=== PATIENT | male | born 1970 | race Caucasian/White ===

== ENCOUNTER → 2018-07-03 | Outpatient (CLI) | payer BC ==
--- NOTE | 2018-07-03 16:30 | RADIOLOGY IMAGING REPORT ---
[place] [facility] [place]: Ricardo Carey : 1970 MR: [id number] V: [id number] EXAM DATE: ORDERING PHYSICIAN: EMERITA HARO TECHNOLOGIST: Location: [facility] Patient: Ricardo Carey : 1970 Visit/Account:[id number] Date of Sevice: 07/03/2018 INDICATION: . Evaluate fracture at the base of the fifth metatarsal. DATE: 07/03/2018 4:22 PM. TECHNIQUE: FOOT RIGHT W/O CONTRAST. Noncontrast axial CT imaging was performed through the right ankl e with sagittal and coronal reformats. One of the following dose optimization techniques was utilized in the performance of this exam: Automated exposure control; adjustment of the mA and/or kV accordin g to the patient's size; or use of an iterative reconstruction technique. Specific details can be r eferenced in the facility's radiology CT exam operational policy. COMPARISON: None available. FINDINGS: A fracture at the base of the fifth metatarsal is extensively comminuted and extends to the intermetatarsal articulation. The cuboid is intact as are the cuneiforms. The first through fourth m etatarsals are intact. No fracture at the ankle. Minimal degenerative findings at the midfoot. Soft t issues are edematous adjacent to the fracture along the lateral side of foot. IMPRESSION: Comminuted fracture of the fifth metatarsal base. No other fracture identified. Report Dictated By: Mi Zapata MD at 07/03/2018 4:22 PM Report E-Signed By: Mi Zapata MD at 07/03/2018 4:26 PM WSN:[id number]
== END ==
LOC: CT 15:27
PROVIDERS: ATTEND Orthopaedic Surgery Hand Surgery
DX: S92.355A Nondisplaced fracture of fifth metatarsal bone, left foot, initial encounter for closed fracture (principal)

== ENCOUNTER → 2018-09-15 | Outpatient (CLI) | payer BC ==
--- NOTE | 2018-09-15 16:09 | RADIOLOGY IMAGING REPORT ---
FAC[facility] PATIENT NAME: Ricardo Carey : 1970 MR: [id number] V: [id number] EXAM DATE: ORDERING PHYSICIAN: CHAD OLIVARES TECHNOLOGIST: Location: [facility] [place] Patient: Ricardo Carey : 1970 Visit/Account:[id number] Date of Sevice: 09/15/2018 INDICATION: . Fracture of the fifth metatarsal. DATE: 09/15/2018 4:01 PM. TECHNIQUE: CT FOOT W/O RT. Noncontrast axial CT imaging was performed through the right foot with sag ittal and coronal reformats. One of the following dose optimization techniques was utilized in the pe rformance of this exam: Automated exposure control; adjustment of the mA and/or kV according to the p atient's size; or use of an iterative reconstruction technique. Specific details can be referenced in the facility's radiology CT exam operational policy. COMPARISON: CT July 03, 2018 FINDINGS: The comminuted fracture at the base of the fifth metatarsal remains unhealed without signif icant bony bridging. Alignment is stable. There is no new fracture. Mild scattered degenerative findi ngs. IMPRESSION: Comminuted fractures at the base of the fifth metatarsal remains unhealed. Report Dictated By: Mi Zapata MD at 09/15/2018 4:01 PM Report E-Signed By: Mi Zapata MD at 09/15/2018 4:06 PM WSN:[id number]
== END ==
LOC: CT 01:04
PROVIDERS: ATTEND Orthopaedic Surgery
DX: S92.351A Displaced fracture of fifth metatarsal bone, right foot, initial encounter for closed fracture (principal)